=== PATIENT | female | born 1970 | race American Indian/Alaskan Native ===

== ENCOUNTER 2016-12-23 04:53 | Emergency (ER) | payer MEDICARE, OTHER ==
[2016-12-23 04:53] VITALS: BMI 21.9
[2016-12-23 05:12] VITALS: RESP 16; TEMP 97.6
[2016-12-23] MEDS ORDERED: Sodium Chloride 0.9% 1,000 ML IV ONE (05:22)
[2016-12-23] MEDS ORDERED: Sodium Chloride 0.9% 1,000 ML ONE (05:29)
--- NOTE | 2016-12-23 05:36 | C.PDOC ---
History Of Present Illness 46 year old female presents to the ED with complaints of suprapubic and LLQ pain beginning earlier today. She admits to increased urination but denies dysuria/hematuria, nausea, vomiting, fever, diarrhea, vaginal discharge. Time Seen by Provider: 12/23/16 05:05 Chief Complaint (Nursing): Abdominal Pain History Per: Patient History/Exam Limitations: no limitations Onset/Duration Of Symptoms: Hrs Current Symptoms Are (Timing): Still Present Severity: Mild Location Of Pain/Discomfort: LLQ, Suprapubic Radiation Of Pain To:: None Quality Of Discomfort: "Pain" Associated Symptoms: Other (increeased urination ). denies: Fever, Chills, Nausea, Vomiting, Diarrhea, Back Pain Exacerbating Factors: None Abnormal Vaginal Bleeding: No Past Medical History Reviewed: Historical Data, Nursing Documentation, Vital Signs Vital Signs: Last Vital Signs Temp 97.6 F 12/23/16 07:09 Pulse 83 12/23/16 07:09 Resp 16 12/23/16 07:09 BP 140/90 12/23/16 07:09 Pulse Ox 97 12/23/16 07:09 - Medical History PMH: Asthma, Diabetes, HTN, Hyperlipidemia, Seizures - [facility] Procedures DRAINAGE OF UPPER ESOPHAGUS, ENDO (01/01/16) EXCISION OF STOMACH, ENDO, DIAGN (01/01/16) EXTIRPATION OF MATTER FROM ESOPHAGUS, ENDO (01/01/16) Family History: States: Diabetes (uncle & aunt), Hypertension (father) - Social History Hx Tobacco Use: No Hx Alcohol Use: No Hx Substance Use: No - Immunization History Hx Tetanus Toxoid Vaccination: Yes Hx Influenza Vaccination: Yes Hx Pneumococcal Vaccination: Yes Review Of Systems Except As Marked, All Systems Reviewed And Found Negative. Constitutional: Negative for: Fever, Chills Cardiovascular: Negative for: Chest Pain Respiratory: Negative for: Shortness of Breath Gastrointestinal: Positive for: Abdominal Pain. Negative for: Nausea, Vomiting , Diarrhea Genitourinary: Positive for: Frequency. Negative for: Dysuria, Hematuria, Vaginal Discharge Physical Exam - Physical Exam Appears: Well, Non-toxic, No Acute Distress Skin: Warm, Dry Eye(s): bilateral: Normal Inspection Oral Mucosa: Moist Cardiovascular: Rhythm Regular Respiratory: Normal Breath Sounds, No Rales, No Rhonchi, No Wheezing Gastrointestinal/Abdominal: Bowel Sounds, Soft, Tenderness (mild LLQ and suprapubic tenderness to palpation), No Distention, No Guarding, No Rebound, Other ((-) McBurney's) Back: No CVA Tenderness Extremity: Normal ROM, No Tenderness Neurological/Psych: Oriented x3, Other (bizarre affect ) ED Course And Treatment - Laboratory Results Result Diagrams: 12/23/16 05:36 12/23/16 05:36 O2 Sat by Pulse Oximetry: 99 (room air ) Pulse Ox Interpretation: Normal Progress Note: Blood work, UA, Upreg ordered and reviewed. Patient given IV NS bolus, IV toradol. Reevaluation Time: 07:00 Reassessment Condition: Improved (On reassessment, patient is resting comfortably and states she feels better. Blood work was unremarkable, UA (+) for mild UTI. Rxs given for Ciprofloxacin and Naprosyn. Patient instructed to follow up with PMD in 1-2 days, and she understands she should return to ED if symptoms worsen.) Disposition Counseled Patient/Family Regarding: Studies Performed, Diagnosis, Need For Followup, Rx Given - Disposition Referrals: Mary Zaman MD [Staff Provider] - Disposition: HOME/ ROUTINE Disposition Time: 07:00 Condition: STABLE Additional Instructions: FOLLOW UP WITH YOUR DOCTOR/CLINIC IN 1-2 DAYS USE MEDICATIONS DIRECTED RETURN TO ER IF SYMPTOMS WORSEN Prescriptions: Ciprofloxacin [Cipro] 1 tab PO BID #14 tab Naproxen [Naprosyn Tab] 375 mg PO BID PRN #15 tab PRN Reason: pain Instructions: Urinary Tract Infection in Women (ED) Forms: [facility] (Faroese), Work Excuse Print Language: KITTITIAN - POA Present On Arrival: None - Clinical Impression Clinical Impression: UTI (urinary tract infection) - Scribe Statement The provider has reviewed the documentation as recorded by the Scribe Kimberley Watson All medical record entries made by the Scribe were at my direction and personally dictated by me. I have reviewed the chart and agree that the record accurately reflects my personal performance of the history, physical exam, medical decision making, and the department course for this patient. I have also personally directed, reviewed, and agree with the discharge instructions and disposition.
[2016-12-23 05:41] LABS: BASO % 0.7 % (0.0-2.0); EOS # 0.1 K/uL (0.0-0.7); EOS % 2.1 % (0.0-4.0); HEMATOCRIT 38.8 % (34.0-47.0); LYMPH # 1.3 K/uL (1.0-4.3); LYMPH % 19.3 % (20.0-40.0); MEAN CORPUSCULAR HEMOGLOBIN 28.5 pg (27.0-31.0); MEAN CORPUSCULAR HGB CONC 33.6 g/dL (33.0-37.0); MEAN PLATELET VOLUME 7.8 fL (7.2-11.7); MONO # 0.6 K/uL (0.0-0.8); MONO % 8.5 % (0.0-10.0); RED CELL DISTRIBUTION WIDTH 13.2 % (11.5-14.5)
[2016-12-23 05:48] LABS: CHLORIDE 104 mmol/L (98-107); POTASSIUM 4.3 mmol/L (3.6-5.2); SODIUM 140 mmol/L (132-148)
[2016-12-23 05:50] LABS: ALB/GLOB RATIO 1.1 (1.0-2.1); ALKALINE PHOSPHATASE 98 U/L (38-126); AST/SGOT 28 U/L (14-36); BILIRUBIN,TOTAL 0.7 mg/dL (0.2-1.3); BLOOD UREA NITROGEN 10 mg/dL (7-17); CARBON DIOXIDE 23 mmol/L (22-30); GFR AFRICAN-AMERICAN > 60; TOTAL PROTEIN 7.7 g/dL (6.3-8.3)
[2016-12-23 05:51] LABS: ALT/SGPT 25 U/L (9-52); CALCIUM 9.4 mg/dl (8.6-10.4); GLUCOSE,RANDOM 107 mg/dL (65-105)
[2016-12-23 06:54] LABS: RBC URINE 1 /hpf (0-3); URINE BACTERIA RARE (<OCC); URINE BILIRUBIN NEGATIVE (NEGATIVE); URINE BLOOD NEGATIVE (NEGATIVE); URINE COLOR Yellow (YELLOW); URINE GLUCOSE (UA) NORMAL (Normal); URINE KETONE NEGATIVE (NEGATIVE); URINE LEUKOCYTE ESTERASE 1+ Leu/uL (Negative); URINE PROTEIN NEGATIVE (NEGATIVE); URINE UROBILINOGEN NORMAL mg/dL (0.2-1.0); WBC URINE 3 /hpf (0-5)
[2016-12-23 07:10] VITALS: BP 140/90; PULSE 83
[2016-12-28 18:27] VITALS: O2SAT 99
== END 2016-12-23 07:09 | disposition home or self-care (01) ==
LOC: C.ER 04:53
DX: N39.0 Urinary tract infection, site not specified (principal)
CPT/HCPCS: 80053; 81001; 82948; 83690; 85025; 87086; 96361; 96374; 99284; J1885; J7040

== ENCOUNTER 2017-01-01 15:36 | Emergency (ER) | payer MEDICARE, OTHER ==
[2017-01-01 15:36] VITALS: BMI 21.9
[2017-01-01 15:48] VITALS: O2SAT 98
[2017-01-01 16:45] LABS: BASO # 0.1 K/uL (0.0-0.2); BASO % 1.1 % (0.0-2.0); EOS # 0.1 K/uL (0.0-0.7); EOS % 2.1 % (0.0-4.0); HEMATOCRIT 41.2 % (34.0-47.0); LYMPH # 1.4 K/uL (1.0-4.3); LYMPH % 21.7 % (20.0-40.0); MEAN CELL VOLUME 85.5 fL (81.0-99.0); MEAN CORPUSCULAR HEMOGLOBIN 28.2 pg (27.0-31.0); MEAN PLATELET VOLUME 7.6 fL (7.2-11.7); MONO # 0.6 K/uL (0.0-0.8); MONO % 9.9 % (0.0-10.0); NRBC % 0.1 % (0.0-2.0); WHITE BLOOD COUNT 6.5 K/uL (4.8-10.8)
[2017-01-01 16:54] LABS: CHLORIDE 106 mmol/L (98-107); POTASSIUM 4.1 mmol/L (3.6-5.2); SODIUM 141 mmol/L (132-148)
[2017-01-01 16:55] LABS: BILIRUBIN,TOTAL 0.5 mg/dL (0.2-1.3); GFR AFRICAN-AMERICAN > 60
[2017-01-01 16:56] LABS: ALB/GLOB RATIO 1.2 (1.0-2.1); ALKALINE PHOSPHATASE 90 U/L (38-126); ALT/SGPT 25 U/L (9-52); AST/SGOT 20 U/L (14-36); BLOOD UREA NITROGEN 12 mg/dL (7-17); CARBON DIOXIDE 23 mmol/L (22-30); GLUCOSE,RANDOM 98 mg/dL (65-105); TOTAL PROTEIN 7.5 g/dL (6.3-8.3)
--- NOTE | 2017-01-01 17:34 | CT ---
PROCEDURE: CT Abdomen and Pelvis without intravenous contrast HISTORY: SUPRAPUBIC, LLQ PAIN COMPARISON: Comparison is made to the previous study dated 01/02/2016 TECHNIQUE: Axial and reformatted coronal and sagittal CT images of the abdomen and pelvis were obtained without IV or oral contrast administration. Contrast Dose: 0 Radiation dose: Total exam DLP = 479.9 mGy-cm. This CT exam was performed using one or more of the following dose reduction techniques: Automated exposure control, adjustment of the mA and/or kV according to patient size, and/or use of iterative reconstruction technique. FINDINGS: LOWER THORAX: Markedly dilated distal esophagus is again noted contains food debris. LIVER: Unremarkable. No gross lesion or ductal dilatation. GALLBLADDER AND BILE DUCTS: Unremarkable. PANCREAS: Unremarkable. No gross lesion or ductal dilatation. SPLEEN: Unremarkable. ADRENALS: Unremarkable. No mass. KIDNEYS AND URETERS: Again seen is 2 millimeter nonobstructing calculus at the mid to lower pole left kidney VASCULATURE: Unremarkable. No aortic aneurysm. BOWEL: Unremarkable. No obstruction. No gross mural thickening. APPENDIX: No evidence of appendicitis PERITONEUM: Unremarkable. No free fluid. No free air. LYMPH NODES: Unremarkable. No enlarged lymph nodes. BLADDER: The bladder is not distended. REPRODUCTIVE: The uterus and adnexa are not visualized. BONES: No acute fracture. OTHER FINDINGS: None. IMPRESSION: 2 millimeter nonobstructing calculus at the mid to lower pole left kidney. No evidence of hydronephrosis or hydroureter. Re- demonstration of markedly dilated distal esophagus suggestive of previous diagnosis of achalasia.
--- NOTE | 2017-01-01 17:54 | C.PDOC ---
History Of Present Illness 46 year old female presents to the ED with complaints of abdominal pain for two days. Patient was seen in ED on 12/27/16 for similar complaints and diagnosed with a UTI. She notes symptoms improved however lower abdominal pain began again yesterday. Patient denies fever, nausea, vomiting, vaginal bleeding or discharge, diarrhea, dysuria/hematuria. Time Seen by Provider: 01/01/17 16:02 Chief Complaint (Nursing): Abdominal Pain History Per: Patient History/Exam Limitations: no limitations Onset/Duration Of Symptoms: Days (2 days ) Current Symptoms Are (Timing): Still Present Location Of Pain/Discomfort: Other (general lower abdominal pain ) Radiation Of Pain To:: None Quality Of Discomfort: "Pain" Associated Symptoms: denies: Fever, Chills, Nausea, Vomiting, Diarrhea, Urinary Symptoms Recent travel outside of the [place]: No Additional History Per: Prior Records Abnormal Vaginal Bleeding: No Past Medical History Reviewed: Historical Data, Nursing Documentation, Vital Signs Vital Signs: Last Vital Signs Temp 98.0 F 01/01/17 18:07 Pulse 68 01/01/17 18:07 Resp 18 01/01/17 18:07 BP 141/92 H 01/01/17 18:07 Pulse Ox 98 01/01/17 18:28 - Medical History PMH: Asthma, Diabetes, HTN, Hyperlipidemia, Seizures - [facility] Procedures DRAINAGE OF UPPER ESOPHAGUS, ENDO (01/01/16) EXCISION OF STOMACH, ENDO, DIAGN (01/01/16) EXTIRPATION OF MATTER FROM ESOPHAGUS, ENDO (01/01/16) Family History: States: Diabetes (uncle & aunt), Hypertension (father) - Social History Hx Tobacco Use: No Hx Alcohol Use: No Hx Substance Use: No - Immunization History Hx Tetanus Toxoid Vaccination: Yes Hx Influenza Vaccination: Yes Hx Pneumococcal Vaccination: Yes Review Of Systems Except As Marked, All Systems Reviewed And Found Negative. Constitutional: Negative for: Fever, Chills Cardiovascular: Negative for: Chest Pain, Palpitations Respiratory: Negative for: Cough, Shortness of Breath Gastrointestinal: Positive for: Abdominal Pain. 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 : [id number]. Patient Name / ID : RODRIGO BAXTER / [id number]. Exam Date : 01/01/2017 16:55:41 ( Approved ). Study Comment : Sex / Age : F / 46Y. Creator : Taty Teixeira. Dictator : Taty Teixeira. Senior Naval Parachutist : Road Hogger Operator : Taty Teixeira. Approver2 : Report Date : 01/01/2017 17:32:52. My Comment : . PROCEDURE: CT Abdomen and Pelvis without intravenous contrast. HISTORY: SUPRAPUBIC, LLQ PAIN. COMPARISON: Comparison is made to the previous study dated 01/02/2016. TECHNIQUE: Axial and reformatted coronal and sagittal CT images of the abdomen and pelvis were obtained without IV or oral contrast administration. Contrast Dose: 0. Radiation dose: Total exam DLP = 479.9 mGy-cm. This CT exam was performed using one or more of the following dose reduction techniques: Automated exposure control, adjustment of the mA and/or kV according to patient size, and/or use of iterative reconstruction technique. FINDINGS: LOWER THORAX : Markedly dilated distal esophagus is again noted contains food debris. LIVER : Unremarkable. No gross lesion or ductal dilatation. GALLBLADDER AND BILE DUCTS: Unremarkable. PANCREAS: Unremarkable. No gross lesion or ductal dilatation. SPLEEN: Unremarkable. ADRENALS: Unremarkable. No mass. KIDNEYS AND URETERS: Again seen is 2 millimeter nonobstructing calculus at the mid to lower pole left kidney. VASCULATURE: Unremarkable. No aortic aneurysm. BOWEL : Unremarkable. No obstruction. No gross mural thickening. APPENDIX: No evidence of appendicitis. PERITONEUM: Unremarkable. No free fluid. No free air. LYMPH NODES: Unremarkable. No enlarged lymph nodes. BLADDER: The bladder is not distended. REPRODUCTIVE: The uterus and adnexa are not visualized. BONES: No acute fracture. OTHER FINDINGS: None. IMPRESSION: 2 millimeter nonobstructing calculus at the mid to lower pole left kidney. No evidence of hydronephrosis or hydroureter. Re- demonstration of markedly dilated distal esophagus suggestive of previous diagnosis of achalasia. Progress Note: Blood work, UA, Upreg, CT scan abd/pelvis ordered. Reevaluation Time: 18:05 Reassessment Condition: Improved (On reassessment, patient is resting comfortably, in no pain/distress. On exam, abdomen is soft and nontender. Blood work is unremarkable, CT scan shows findings consistent with achalasia ( patient has known history). Patient states she is unable to give us urine at this time, but denies dysuria/hematuria, vaginal bleeding/discharge. Will discharge patient home, instructed her to follow up with PMD in 1-2 days, and with Gi specialist within 1 week. She understands she should return to Ed if symptoms worsen.) Disposition Counseled Patient/Family Regarding: Diagnosis, Need For Followup, Rx Given - Disposition Referrals: Mary Zaman MD [Staff Provider] - Gavin Hughes MD [Staff Provider] - Disposition: HOME/ ROUTINE Disposition Time: 18:10 Condition: STABLE Additional Instructions: FOLLOW UP WITH DR ZAMAN IN 1-2 DAYS, AND WITH GI SPECIALIST WITHIN 1 WEEK RETURN TO ER IF YOUR SYMPTOMS WORSEN Instructions: Abdominal Pain (ED) Forms: [employer] (Arabic) Print Language: SAMI - POA Present On Arrival: None - Clinical Impression Clinical Impression: Abdominal pain - Scribe Statement The provider has reviewed the documentation as recorded by the Scribe Kimberley Watson All medical record entries made by the Scribe were at my direction and personally dictated by me. I have reviewed the chart and agree that the record accurately reflects my personal performance of the history, physical exam, medical decision making, and the department course for this patient. I have also personally directed, reviewed, and agree with the discharge instructions and disposition.
[2017-01-01 18:08] VITALS: BP 141/92; PULSE 68; RESP 18; TEMP 98
== END 2017-01-01 18:39 | disposition home or self-care (01) ==
LOC: C.ER 15:36
DX: R10.9 Unspecified abdominal pain (principal); I10 Essential (primary) hypertension; E11.9 Type 2 diabetes mellitus without complications

== ENCOUNTER 2017-04-27 08:25 | Emergency (ER) | payer MEDICARE, OTHER ==
[2017-04-27 08:26] VITALS: BMI 21.9
[2017-04-27 08:32] VITALS: BP 151/111; PULSE 76; RESP 16; TEMP 98.2; O2SAT 99
--- NOTE | 2017-04-27 08:58 | C.PDOC ---
History Of Present Illness 46 yr old female presents to the ER with complaints of chronic left ear discomfort. States the pain is worsened when she sleep. Denies Q-tipo use in the ear. Denies fever, hearing loss, neck pain or headache. Patient has many prior evaluation of minimal complaints. Time Seen by Provider: 04/27/17 08:46 Chief Complaint (Nursing): ENT Problem History Per: Patient History/Exam Limitations: None Onset/Duration Of Symptoms: Persistent (Chronic) Current Symptoms Are (Timing): Still Present Past Medical History Reviewed: Historical Data, Nursing Documentation, Vital Signs Vital Signs: Last Vital Signs Temp 98.2 F 04/27/17 08:28 Pulse 76 04/27/17 08:28 Resp 16 04/27/17 08:28 BP 151/111 H 04/27/17 08:28 Pulse Ox 99 04/27/17 08:57 - Medical History PMH: Asthma, Diabetes, HTN, Hyperlipidemia, Seizures - [facility] Procedures DRAINAGE OF UPPER ESOPHAGUS, ENDO (01/01/16) EXCISION OF STOMACH, ENDO, DIAGN (01/01/16) EXTIRPATION OF MATTER FROM ESOPHAGUS, ENDO (01/01/16) Family History: States: Diabetes (uncle & aunt), Hypertension (father) - Social History Hx Tobacco Use: No Hx Alcohol Use: No Hx Substance Use: No - Immunization History Hx Tetanus Toxoid Vaccination: Yes Hx Influenza Vaccination: Yes Hx Pneumococcal Vaccination: Yes Review Of Systems Except As Marked, All Systems Reviewed And Found Negative. Constitutional: Negative for: Fever ENT: Positive for: Ear Pain (Left ear), Other (No hearing loss) Musculoskeletal: Negative for: Neck Pain Neurological: Negative for: Headache Physical Exam - Physical Exam Appears: Non-toxic, No Acute Distress Skin: Warm, Dry, No Rash Head: Atraumatic, Normacephalic Eye(s): bilateral: PERRL, EOMI, right: Other (stable right lateral strabismus) Ear(s): Bilateral: Normal, Other (Normal ear canals. No excoriation. Normal scant wax.) Oral Mucosa: Moist Neck: Normal, Normal ROM, Supple Neurological/Psych: Oriented x3, Normal Speech, Normal Motor ED Course And Treatment O2 Sat by Pulse Oximetry: 99 (RA) Pulse Ox Interpretation: Normal Medical Decision Making Medical Decision Making: normal b/l ear canals/TM's reassured. Disposition Doctor Will See Patient In The: Office Counseled Patient/Family Regarding: Studies Performed, Diagnosis - Disposition Referrals: Mary Zaman MD [Staff Provider] - Disposition: HOME/ ROUTINE Disposition Time: 08:57 Condition: GOOD Additional Instructions: both your ear canals are normal no infections follow-up with Dr. Zaman as needed. Forms: [employer] (Algerian) - Clinical Impression Clinical Impression: Dry left ear canal - Scribe Statement The provider has reviewed the documentation as recorded by the Abrilibkurt Horta Provider Attestation: All medical record entries made by the Abrilibe were at my direction and personally dictated by me. I have reviewed the chart and agree that the record accurately reflects my personal performance of the history, physical exam, medical decision making, and the department course for this patient. I have also personally directed, reviewed, and agree with the discharge instructions and disposition.
== END 2017-04-27 09:16 | disposition home or self-care (01) ==
LOC: C.ER 08:25
DX: H93.8X2 Other specified disorders of left ear (principal)

== ENCOUNTER 2017-06-05 23:15 | Emergency (ER) | payer MEDICARE, OTHER ==
[2017-06-05 23:15] VITALS: BMI 21.9
[2017-06-05 23:22] VITALS: BP 139/95; PULSE 98; RESP 18; TEMP 97.7; O2SAT 100
--- NOTE | 2017-06-05 23:55 | C.PDOC ---
History Of Present Illness 46 year old female with a Hx of asthma presents to the ER with a complaint of a persistent dry cough for the past 4 days. Denies fever, chest pain, SOB, nausea , or vomiting. Time Seen by Provider: 06/05/17 23:39 Chief Complaint (Nursing): Cough, Cold, Congestion History Per: Patient History/Exam Limitations: no limitations Onset/Duration Of Symptoms: Days Current Symptoms Are (Timing): Still Present Recent travel outside of the [place]: No Past Medical History Reviewed: Historical Data, Nursing Documentation, Vital Signs Vital Signs: Last Vital Signs Temp 97.7 F 06/05/17 23:19 Pulse 98 H 06/05/17 23:19 Resp 18 06/05/17 23:19 BP 139/95 H 06/05/17 23:19 Pulse Ox 100 06/06/17 01:56 - Medical History PMH: Asthma, Diabetes, HTN, Hyperlipidemia, Seizures - [facility] Procedures DRAINAGE OF UPPER ESOPHAGUS, ENDO (01/01/16) EXCISION OF STOMACH, ENDO, DIAGN (01/01/16) EXTIRPATION OF MATTER FROM ESOPHAGUS, ENDO (01/01/16) Family History: States: Diabetes (uncle & aunt), Hypertension (father) - Social History Hx Tobacco Use: No Hx Alcohol Use: No Hx Substance Use: No - Immunization History Hx Tetanus Toxoid Vaccination: Yes Hx Influenza Vaccination: Yes Hx Pneumococcal Vaccination: Yes Review Of Systems Constitutional: Negative for: Fever, Chills Cardiovascular: Negative for: Chest Pain Respiratory: Positive for: Cough. Negative for: Shortness of Breath, Sputum Gastrointestinal: Negative for: Nausea, Vomiting, Abdominal Pain Physical Exam - Physical Exam Appears: Well, Non-toxic, No Acute Distress Skin: Normal Color, Warm, Dry, No Rash Head: Atraumatic, Normacephalic Eye(s): bilateral: Normal Inspection Ear(s): Bilateral: Normal Nose: Normal Oral Mucosa: Moist Throat: Normal, No Erythema, No Exudate Neck: Normal, Supple Chest: Symmetrical, No Tenderness Cardiovascular: Rhythm Regular, No Friction Rub, No Murmur Respiratory: Normal Breath Sounds, No Rales, No Rhonchi, No Wheezing Gastrointestinal/Abdominal: Soft, No Tenderness Back: Normal Inspection, No CVA Tenderness Extremity: Normal ROM, No Swelling Neurological/Psych: Oriented x3, Normal Speech, Normal Motor, Normal Sensation Gait: Steady ED Course And Treatment O2 Sat by Pulse Oximetry: 100 (Room air) Pulse Ox Interpretation: Normal Progress Note: Claritin and prednisone administered. Patient is resting comfortably in the ER with no active cough in the ER, vitals are stable. Will discharge home with Rx and instructions to follow up with PMD for further evaluation or return if symptoms worsen. Disposition - Disposition Referrals: Mary Zaman MD [Primary Care Provider] - Disposition: HOME/ ROUTINE Disposition Time: 12:30 Condition: GOOD Additional Instructions: Follow up with the medical doctor within 1-2 days. Return if worsened. Prescriptions: Loratadine [Claritin] 10 mg PO DAILY #10 tab predniSONE [Prednisone] 20 mg PO BID #10 tab Instructions: Upper Respiratory Infection (ED) Forms: [employer] (Swazi) - Clinical Impression Clinical Impression: Upper respiratory infection - PA / MILITARY SCIENCE INSTRUCTOR / Resident Statement MD/DO has reviewed & agrees with the documentation as recorded. - Scribe Statement The provider has reviewed the documentation as recorded by the Scribe Uriah Horne All medical record entries made by the Abrilibkurt were at my direction and personally dictated by me. I have reviewed the chart and agree that the record accurately reflects my personal performance of the history, physical exam, medical decision making, and the department course for this patient. I have also personally directed, reviewed, and agree with the discharge instructions and disposition.
== END 2017-06-06 00:42 | disposition home or self-care (01) ==
LOC: C.ER 23:15 → SUPCPDRO 23:15 → C.ER 06-06 00:42
DX: J06.9 Acute upper respiratory infection, unspecified (principal)

== ENCOUNTER 2017-08-07 08:15 | Emergency (ER) | payer MEDICARE, OTHER ==
[2017-08-07 08:23] VITALS: BMI 26.5
[2017-08-07 08:24] VITALS: BP 134/88; PULSE 88; RESP 17; TEMP 97.8; O2SAT 100
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
--- NOTE | 2017-08-08 22:39 | CARD ---
APPROVED REPORT EKG Measurement Heart [id number] <Conclusion> Normal sinus rhythm Normal ECG
== END 2017-08-07 09:12 | disposition home or self-care (01) ==
LOC: C.ER 08:15
DX: F41.9 Anxiety disorder, unspecified (principal)

== ENCOUNTER 2017-09-22 10:02 | Emergency (ER) | payer MEDICARE, OTHER ==
[2017-09-22 10:02] VITALS: BMI 26.5
[2017-09-22 10:13] VITALS: BP 157/97; PULSE 68; RESP 20; TEMP 98.4; O2SAT 100
--- NOTE | 2017-09-22 10:48 | C.PDOC ---
History Of Present Illness 47 y/o female presents to the ER complaining of pain and ringing in the left ear which has been present since yesterday. Patient denies having fever, runny nose, cough, and sore throat. Of note, patient has a history of diabetes and she is compliant with her medications. Time Seen by Provider: 09/22/17 10:18 Chief Complaint (Nursing): ENT Problem History Per: Patient History/Exam Limitations: None Onset/Duration Of Symptoms: Days Current Symptoms Are (Timing): Still Present Severity: Moderate Past Medical History Reviewed: Historical Data, Nursing Documentation, Vital Signs Vital Signs: Last Vital Signs Temp 98.4 F 09/22/17 10:07 Pulse 68 09/22/17 10:07 Resp 20 09/22/17 10:07 BP 157/97 H 09/22/17 10:07 Pulse Ox 100 09/22/17 14:29 - Medical History PMH: Asthma, Diabetes, HTN, Hyperlipidemia, Seizures Denies: Chronic Kidney Disease Other Surgeries: Hx of surgeries - [facility] Procedures DRAINAGE OF UPPER ESOPHAGUS, ENDO (01/01/16) EXCISION OF STOMACH, ENDO, DIAGN (01/01/16) EXTIRPATION OF MATTER FROM ESOPHAGUS, ENDO (01/01/16) Family History: States: Unknown Family Hx, Diabetes (uncle & aunt), Hypertension (father) - Social History Hx Tobacco Use: No Hx Alcohol Use: No Hx Substance Use: No - Immunization History Hx Tetanus Toxoid Vaccination: No Hx Influenza Vaccination: Yes Hx Pneumococcal Vaccination: No Review Of Systems Except As Marked, All Systems Reviewed And Found Negative. Constitutional: Negative for: Fever, Chills ENT: Positive for: Ear Pain (left ear pain). Negative for: Nose Discharge, Throat Pain Respiratory: Negative for: Cough Physical Exam - Physical Exam Appears: Non-toxic, No Acute Distress Skin: Normal Color, Warm, Dry Head: Atraumatic, Normacephalic Eye(s): bilateral: Normal Inspection Ear(s): Left: TM Erythema, Other (TM bulging, ( -) discharge in ear canal, ( -) mastoid tenderness to palpation), Right: Normal Nose: Normal Oral Mucosa: Moist Neck: Supple Cardiovascular: Rhythm Regular Respiratory: Normal Breath Sounds, No Rales, No Rhonchi, No Wheezing Neurological/Psych: Oriented x3, Normal Speech ED Course And Treatment O2 Sat by Pulse Oximetry: 100 (RA) Pulse Ox Interpretation: Normal Progress Note: Patient treated with Amoxicillin PO and Tylenol PO. Patient has been discharged with prescriptions for Amoxicillin and Motrin. Patient has been instructed to follow up with PMD in 1-2 days and return to the ER if symptoms worsen. Disposition Counseled Patient/Family Regarding: Studies Performed, Diagnosis, Need For Followup, Rx Given - Disposition Referrals: Mary Zaman MD [Staff Provider] - Disposition: HOME/ ROUTINE Disposition Time: 10:45 Condition: STABLE Additional Instructions: FOLLOW UP WITH YOUR DOCTOR IN 1-2 DAYS USE MEDICATIONS DIRECTED RETURN TO ER IF SYMPTOMS WORSEN Prescriptions: Amoxicillin 875 mg PO BID #14 tab Ibuprofen [Motrin Tab] 600 mg PO Q6 PRN #30 tab PRN Reason: fever/pain Instructions: Ear Infections (Otitis Media) (DC) Forms: [employer] (Rwandan) Print Language: GEORGIAN - POA Present On Arrival: None - Clinical Impression Clinical Impression: Left otitis media - Scribe Statement The provider has reviewed the documentation as recorded by the Patrice Murphy Provider Attestation: All medical record entries made by the Abrilibkurt were at my direction and personally dictated by me. I have reviewed the chart and agree that the record accurately reflects my personal performance of the history, physical exam, medical decision making, and the department course for this patient. I have also personally directed, reviewed, and agree with the discharge instructions and disposition.
== END 2017-09-22 10:52 | disposition home or self-care (01) ==
LOC: C.ER 10:02
DX: H66.92 Otitis media, unspecified, left ear (principal)

== ENCOUNTER 2017-12-02 10:40 | Emergency (ER) | payer MEDICARE, OTHER ==
[2017-12-02 10:41] VITALS: BMI 26.5
[2017-12-02 10:52] VITALS: O2SAT 100
--- NOTE | 2017-12-02 11:28 | C.PDOC ---
History Of Present Illness 47yo female with history of diabetes, asthma, seizures, comes to ER for evaluation of nausea, decreased appetite and states she has "a lot of phlegm." She also reports some ear discomfort. Patient denies any fever, chills, chest pain, shortness of breath, recent illnesses. She has no other medical complaints. Time Seen by Provider: 12/02/17 10:57 Chief Complaint (Nursing): Abdominal Pain History Per: Patient History/Exam Limitations: no limitations Onset/Duration Of Symptoms: Days Past Medical History Reviewed: Historical Data, Nursing Documentation, Vital Signs Vital Signs: Last Vital Signs Temp 98.2 F 12/02/17 10:50 Pulse 81 12/02/17 10:50 Resp 17 12/02/17 10:50 BP 156/105 H 12/02/17 10:50 Pulse Ox 100 12/02/17 11:30 - Medical History PMH: Asthma, Diabetes, HTN, Hyperlipidemia, Seizures Denies: Chronic Kidney Disease Surgical History: No Surg Hx - [facility] Procedures DRAINAGE OF UPPER ESOPHAGUS, ENDO (01/01/16) EXCISION OF STOMACH, ENDO, DIAGN (01/01/16) EXTIRPATION OF MATTER FROM ESOPHAGUS, ENDO (01/01/16) Family History: States: Diabetes (uncle & aunt), Hypertension (father) - Social History Hx Tobacco Use: No Hx Alcohol Use: No Hx Substance Use: No - Immunization History Hx Tetanus Toxoid Vaccination: No Hx Influenza Vaccination: Yes Hx Pneumococcal Vaccination: No Review Of Systems Constitutional: Negative for: Fever, Chills Cardiovascular: Negative for: Chest Pain Respiratory: Negative for: Shortness of Breath Gastrointestinal: Positive for: Nausea, Other (spitting up "phlegm") Physical Exam - Physical Exam Appears: Non-toxic Skin: Normal Color Head: Atraumatic, Normacephalic Eye(s): bilateral: Normal Inspection Ear(s): Bilateral: Normal Nose: Normal, No Discharge Oral Mucosa: Moist Throat: Normal, No Erythema, No Exudate, No Drooling, No Mass Neck: Supple Chest: Symmetrical Cardiovascular: Rhythm Regular Respiratory: Normal Breath Sounds, No Rales, No Rhonchi, No Wheezing Neurological/Psych: Oriented x3 ED Course And Treatment O2 Sat by Pulse Oximetry: 100 (RA) Pulse Ox Interpretation: Normal Progress Note: Patient given Tylenol and Claritin. Disposition - Disposition Referrals: Mary Zaman MD [Staff Provider] - Disposition: HOME/ ROUTINE Disposition Time: 12:11 Condition: IMPROVED Additional Instructions: Follow up with the medical doctor within 1-2 days, Return if worsened. Prescriptions: Acetaminophen [Tylenol] 325 mg PO Q6 PRN #30 tab PRN Reason: Fever >100.4 F Famotidine [Pepcid] 20 mg PO BID #20 tab Lactose-Reduced Food [Ensure Plus] 237 ml PO DAILY #6 liquid Instructions: Viral Upper Respiratory Infection, Adult (DC) Forms: [employer] (Tamazight) - Clinical Impression Clinical Impression: Post-nasal drip, Upper respiratory infection - PA / COMMUNICATION EQUIPMENT MECHANIC / Resident Statement MD/DO has reviewed & agrees with the documentation as recorded. - Scribe Statement The provider has reviewed the documentation as recorded by the Patrice Oropeza Provider Attestation: All medical record entries made by the Patrice were at my direction and personally dictated by me. I have reviewed the chart and agree that the record accurately reflects my personal performance of the history, physical exam, medical decision making, and the department course for this patient. I have also personally directed, reviewed, and agree with the discharge instructions and disposition.
[2017-12-02 12:35] VITALS: BP 150/85; PULSE 55; RESP 18; TEMP 98.7
== END 2017-12-02 12:40 | disposition home or self-care (01) ==
LOC: C.ER 10:40
DX: R09.82 Postnasal drip (principal); J06.9 Acute upper respiratory infection, unspecified

== ENCOUNTER 2018-03-23 08:46 | Emergency (ER) | payer MEDICARE, OTHER ==
[2018-03-23 08:46] VITALS: BMI 26.5
[2018-03-23 08:58] VITALS: BP 127/91; PULSE 75; RESP 18; TEMP 97.6; O2SAT 100
--- NOTE | 2018-03-23 09:33 | C.PDOC ---
History Of Present Illness 47 year old female presents to the ED for evaluation of mild epigastric pain that radiates up into the chest for 1 day. Patient describes the epigastic pain as burning, reports spitting clear phlegm, and decrease in PO intake due to the epigastic pain for 1 day. She also complains of itchy left ear. Admits to taking Protonix daily. Denies fever, sore throat, runny nose, ear pain, vomiting, nausea, diarrhea, and any other associated symptoms. Time Seen by Provider: 03/23/18 09:08 Chief Complaint (Nursing): Cough, Cold, Congestion History Per: Patient History/Exam Limitations: no limitations Onset/Duration Of Symptoms: Days Current Symptoms Are (Timing): Still Present Past Medical History Reviewed: Historical Data, Nursing Documentation, Vital Signs Vital Signs: Last Vital Signs Temp 97.6 F 03/23/18 08:56 Pulse 75 03/23/18 08:56 Resp 18 03/23/18 08:56 BP 127/91 H 03/23/18 08:56 Pulse Ox 100 03/23/18 08:56 - Medical History PMH: Asthma, Diabetes, HTN, Hyperlipidemia, Seizures Denies: Chronic Kidney Disease - [facility] Procedures DRAINAGE OF UPPER ESOPHAGUS, ENDO (01/01/16) EXCISION OF STOMACH, ENDO, DIAGN (01/01/16) EXTIRPATION OF MATTER FROM ESOPHAGUS, ENDO (01/01/16) Family History: States: Unknown Family Hx, Diabetes (uncle & aunt), Hypertension (father) - Social History Hx Tobacco Use: No Hx Alcohol Use: No Hx Substance Use: No - Immunization History Hx Tetanus Toxoid Vaccination: No Hx Influenza Vaccination: Yes Hx Pneumococcal Vaccination: No Review Of Systems Constitutional: Negative for: Fever ENT: Positive for: Other (itchy left ear. ). Negative for: Ear Pain, Nose Discharge, Throat Pain (sore.) Cardiovascular: Positive for: Chest Pain (secondary to the epigastic pain. ) Gastrointestinal: Positive for: Other (mild epigastric pain.). Negative for: Nausea, Vomiting, Diarrhea Physical Exam - Physical Exam Appears: Well, Non-toxic, No Acute Distress Skin: Normal Color, Warm, Dry Head: Atraumatic, Normacephalic Eye(s): bilateral: Normal Inspection Nose: Normal, No Discharge Oral Mucosa: Moist Throat: Normal, No Erythema, No Exudate Neck: Normal ROM, Supple Chest: Symmetrical, No Deformity Cardiovascular: Rhythm Regular, No Murmur Respiratory: Normal Breath Sounds, No Rales, No Rhonchi, No Wheezing Gastrointestinal/Abdominal: Normal Exam, Soft, No Tenderness Neurological/Psych: Oriented x3, Normal Speech ED Course And Treatment O2 Sat by Pulse Oximetry: 100 (RA) Pulse Ox Interpretation: Normal Medical Decision Making Medical Decision Making: Plan: -Pepcid. Progress/Update: Patient stable for discharge home. Prescribed Pepcid. Disposition Counseled Patient/Family Regarding: Diagnosis, Need For Followup, Rx Given - Disposition Referrals: Blanca Bennett [Staff Provider] - Mary Zaman MD [Staff Provider] - Disposition: HOME/ ROUTINE Disposition Time: 09:45 Condition: STABLE Additional Instructions: FOLLOW UP WITH YOUR DOCTOR IN 1-2 DAYS, AND WITH LAND USE PLANNER WITHIN 1 WEEK USE MEDICATION NEEDED RETURN TO ER IF SYMPTOMS WORSEN Prescriptions: Famotidine [Pepcid] 20 mg PO BID PRN #15 tab PRN Reason: abdominal Instructions: Acid Reflux (Gastroesophageal Reflux Disease), Adult (DC) Forms: [employer] (Burundian) Print Language: SOUTH KOREAN - Clinical Impression Clinical Impression: GERD (gastroesophageal reflux disease) - Scribe Statement The provider has reviewed the documentation as recorded by the Scribe (Miladys Dickey) Provider Attestation: All medical record entries made by the Scribe were at my direction and personally dictated by me. I have reviewed the chart and agree that the record accurately reflects my personal performance of the history, physical exam, medical decision making, and the department course for this patient. I have also personally directed, reviewed, and agree with the discharge instructions and disposition.
== END 2018-03-23 09:42 | disposition home or self-care (01) ==
LOC: C.ER 08:46
DX: K21.9 Gastro-esophageal reflux disease without esophagitis (principal)

== ENCOUNTER 2018-05-08 21:58 | Emergency (ER) | payer MEDICARE, MEDICAID ==
[2018-05-08 21:58] VITALS: BMI 26.5
[2018-05-08 23:10] VITALS: BP 123/80; PULSE 61; RESP 18; TEMP 97.5; O2SAT 100
[2018-05-08 23:55] LABS: HCG,QUALITATIVE URINE NEGATIVE (NEGATIVE); SQUAMOUS EPITHIAL 1 /hpf (0-5); URINE BACTERIA FEW (<OCC); URINE BILIRUBIN NEGATIVE (NEGATIVE); URINE BLOOD NEGATIVE (NEGATIVE); URINE CALCIUM OXALATE CRYSTALS FEW /hpf (<OCC); URINE CLARITY Hazy (Clear); URINE COLOR Yellow (YELLOW); URINE GLUCOSE (UA) NORMAL (Normal); URINE LEUKOCYTE ESTERASE 2+ Leu/uL (Negative); URINE PROTEIN NEGATIVE (NEGATIVE)
--- NOTE | 2018-05-09 00:36 | C.PDOC ---
History Of Present Illness 47 year old female presents to the ED c/o dysuria, urinary frequency and urgency. Patient denies fever, chills, nausea, vomit, diarrhea, abdominal pain, rash, back pain. Time Seen by Provider: 05/08/18 23:43 Chief Complaint (Nursing): Female Genitourinary History Per: Patient History/Exam Limitations: no limitations Onset/Duration Of Symptoms: Days Current Symptoms Are (Timing): Still Present Quality Of Discomfort: "Pain" Associated Symptoms: Urinary Symptoms. denies: Nausea, Vomiting, Diarrhea Additional History Per: Patient Abnormal Vaginal Bleeding: No Past Medical History Reviewed: Historical Data, Nursing Documentation, Vital Signs Vital Signs: Last Vital Signs Temp 97.5 F L 05/08/18 22:58 Pulse 61 05/08/18 22:58 Resp 18 05/08/18 22:58 BP 123/80 05/08/18 22:58 Pulse Ox 100 05/08/18 22:58 - Medical History PMH: Asthma, Diabetes, HTN, Hyperlipidemia, Seizures Denies: Chronic Kidney Disease Surgical History: No Surg Hx - [facility] Procedures DRAINAGE OF UPPER ESOPHAGUS, ENDO (01/01/16) EXCISION OF STOMACH, ENDO, DIAGN (01/01/16) EXTIRPATION OF MATTER FROM ESOPHAGUS, ENDO (01/01/16) Family History: States: Diabetes (uncle & aunt), Hypertension (father) - Social History Hx Tobacco Use: No Hx Alcohol Use: No Hx Substance Use: No - Immunization History Hx Tetanus Toxoid Vaccination: No Hx Influenza Vaccination: Yes Hx Pneumococcal Vaccination: No Review Of Systems Constitutional: Negative for: Fever, Chills Cardiovascular: Negative for: Chest Pain Respiratory: Negative for: Shortness of Breath Gastrointestinal: Negative for: Nausea, Vomiting, Abdominal Pain Genitourinary: Positive for: Dysuria, Frequency. Negative for: Hematuria, Vaginal Discharge, Vaginal Bleeding Musculoskeletal: Negative for: Back Pain Skin: Negative for: Rash Physical Exam - Physical Exam Appears: Non-toxic, No Acute Distress Skin: Normal Color, Warm, Dry Head: Atraumatic, Normacephalic Eye(s): bilateral: Normal Inspection Oral Mucosa: Moist Neck: Normal ROM, Supple Chest: Symmetrical Cardiovascular: Rhythm Regular Respiratory: Normal Breath Sounds, No Rales, No Rhonchi, No Wheezing Gastrointestinal/Abdominal: Soft, No Tenderness, No Guarding, No Rebound Back: No CVA Tenderness Extremity: Normal ROM, No Tenderness, No Swelling Neurological/Psych: Oriented x3, Normal Speech, Normal Cognition Gait: Steady ED Course And Treatment O2 Sat by Pulse Oximetry: 100 (ON RA) Pulse Ox Interpretation: Normal Progress Note: Plan: - Macrobid 100 mg PO. - UA. Patient's urine showed UTI, patient will be prescribed abx. Patient was advised to increase fluid intake and to follow up with PMD. Disposition Counseled Patient/Family Regarding: Diagnosis, Need For Followup, Rx Given - Disposition Disposition: HOME/ ROUTINE Disposition Time: 00:34 Condition: STABLE Additional Instructions: Please follow up with pMD Return to ER if worse Prescriptions: Nitrofurantoin Macrocrystals [Macrobid] 1 cap PO BID #14 cap Phenazopyridine HCl [Pyridium] 100 mg PO TID #6 tab Instructions: Urinary Tract Infection, Adult (DC) Forms: [employer] (Namibian) - Clinical Impression Clinical Impression: UTI (urinary tract infection) - PA / RFID MANAGER / Resident Statement MD/DO has reviewed & agrees with the documentation as recorded. - Scribe Statement The provider has reviewed the documentation as recorded by the Scribe Patricio Patterson All medical record entries made by the Abrilibkurt were at my direction and personally dictated by me. I have reviewed the chart and agree that the record accurately reflects my personal performance of the history, physical exam, medical decision making, and the department course for this patient. I have also personally directed, reviewed, and agree with the discharge instructions and disposition.
== END 2018-05-09 00:43 | disposition home or self-care (01) ==
LOC: C.ER 21:58
DX: N39.0 Urinary tract infection, site not specified (principal); E11.9 Type 2 diabetes mellitus without complications; E78.5 Hyperlipidemia, unspecified; I10 Essential (primary) hypertension

== ENCOUNTER 2018-09-09 07:21 | Day surgery (SDC) | payer MEDICARE ==
[2018-09-08 10:39] VITALS: BMI 20.4
[2018-09-09 08:10] VITALS: O2SAT 100
[2018-09-09] MEDS ORDERED: Lactated Ringer's 500 ML IV SCH (08:30)
[2018-09-09] MEDS ORDERED: Propofol 10 mg/ml Inj (20 ML) ONE (09:26)
--- NOTE | 2018-09-09 09:56 | CP.SDSHP ---
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 Evaluated Today:Candidate for Anesthesia & Procedure: Yes - Date & Time Date: 09/09/18 Time: 09:56 Short Stay Discharge - Short Stay Discharge Admitting Diagnosis/Reason for Visit: ENCOUNTER FOR SCREENING FOR MALIGNANT NEOPLASM OF Disposition: HOME/ ROUTINE
[2018-09-09 10:43] VITALS: TEMP 97
[2018-09-09 12:01] VITALS: BP 113/67; PULSE 58; RESP 14
== END 2018-09-09 11:40 | disposition home or self-care (01) ==
LOC: C.ENDO 07:21
PROVIDERS: ATTEND Internal Medicine Gastroenterology
DX: Z12.11 Encounter for screening for malignant neoplasm of colon (principal); K64.1 Second degree hemorrhoids; I10 Essential (primary) hypertension; E11.9 Type 2 diabetes mellitus without complications; G40.909 Epilepsy, unspecified, not intractable, without status epilepticus
CPT/HCPCS: 82948; G0121; J2001; J2704; J7120

== ENCOUNTER 2018-09-23 19:35 | Emergency (ER) | payer MEDICARE, MEDICAID | END 2018-09-23 23:40 | disposition home or self-care (01) | LOC: C.ER 19:35 ==